=== PATIENT | male | born 1955 | race Caucasian/White ===

== ENCOUNTER 2022-03-27 11:04 | Emergency (ER) | payer OTHER, MEDICARE ==
[2022-03-27] MEDS ORDERED: CEPHALEXIN500 MG PO (13:47)
== END 2022-03-27 15:03 | disposition home or self-care (01) ==
LOC: FER 11:04
DX: S91.312A Laceration without foreign body, left foot, initial encounter (principal); I10 Essential (primary) hypertension; Z23 Encounter for immunization; W27.0XXA Contact with workbench tool, initial encounter; Y92.009 Unspecified place in unspecified non-institutional (private) residence as the place of occurrence of the external cause
CPT/HCPCS: 90471; 90715